=== PATIENT | male | born 1970 | race Caucasian/White ===

== ENCOUNTER 2021-09-05 01:32 | Observation (INO) | payer MEDICAID, SELFPAY ==
[2021-09-05] VITALS (13 sets, daily range): BP systolic 115–183; BP diastolic 72–120; PULSE 64–85; RESP 14–23; TEMP 36.4–36.7; O2SAT 88–100; BMI 47.5; BMI 47.2
--- NOTE | 2021-09-05 01:45 | CT_ITS ---
We are attempting to reach an attending provider to discuss findings. An addendum with communication details will be sent when the communication is complete. STUDY: CTA HEAD AND NECK WITH CONTRAST REASON FOR EXAM: Male, 51 years old. Neuro deficit, acute, stroke suspected RADIATION DOSAGE (If Supplied By Facility): CTDIvol = ( 24.70 ) mGy, DLP = ( 791.15 ) mGycm TECHNIQUE: CT angiography was performed with a multi-detector CT scanner. Data acquisition was obtained from the skull base through the vertex following intravenous administration of IV- 100 mL IsoVue 370. MIP images were reconstructed from the axial data set. Post-processing of the angiographic images was performed, with multiplanar reformation and 3D reconstruction. Individualized dose optimization techniques were used for this CT. COMPARISON: No relevant priors. FINDINGS: Normal bilateral petrous carotid arteries. Normal right cavernous carotid artery with a normal supraclinoid bifurcation. Normal left cavernous carotid artery with a normal supraclinoid bifurcation. Normal right A1 segments of the anterior cerebral artery. Normal left A1 segments of the anterior cerebral artery. Normal intact anterior communicating artery (ACOM). Normal bilateral A2 segments of the anterior cerebral arteries. Normal right M1 and M2 segments of the middle cerebral arteries, with a normal M1 bifurcation. Normal left M1 and M2 segments of the middle cerebral arteries, with a normal M1 bifurcation. Normal right posterior communicating artery (PCOM). Normal left posterior communicating artery (PCOM). Normal bilateral vertebral arteries. Normal basilar artery with a normal basilar bifurcation. The visualized bilateral superior cerebellar (SCA) arteries are normal. Normal bilateral P1, P2 and visualized P3 segments of the posterior cerebral arteries. There is no demonstrated aneurysm of the cheesh-na of [place]. There is no demonstrated abnormality of the visualized brain. AORTIC ARCH: Normal visualized aortic arch. Normal origins of the brachiocephalic, left common carotid, and left subclavian arteries. RIGHT CAROTID ARTERIES: Normal right common carotid artery (CCA). Normal right common carotid bulb. Normal origin of the right internal carotid (ICA) artery without a hemodynamically significant stenosis. Normal visualized cervical portion of the right internal carotid artery. Normal origin of the right external carotid artery (ECA). LEFT CAROTID ARTERIES: Normal left common carotid artery (CCA). Normal left common carotid bulb. Normal origin of the left internal carotid (ICA) artery without a hemodynamically significant stenosis. Normal visualized cervical portion of the left internal carotid artery. Normal origin of the left external carotid artery (ECA). VERTEBRAL ARTERIES: Normal bilateral vertebral arteries. CT/STROKE CTA Head AND Neck W/Con IMPRESSION: Normal CTA Head and neck with contrast. Electronically Signed: Hubert Sanders MD at 2:32 EST Tel , Service support ,
--- NOTE | 2021-09-05 01:45 | EKG12_ITS ---
Test Reason : ABD PAIN Blood Pressure : / mmHG Vent. Rate : 073 BPM Atrial Rate : 073 BPM P-R Int : 156 ms QRS Dur : 102 ms QT Int : 436 ms P-R-T Axes : 062 -26 032 degrees QTc Int : 480 ms Normal sinus rhythm Prolonged QT Abnormal ECG Leftward axis Incomplete Right Bundle Branch Block Confirmed by LAURIE PAINTING, LEONELA ([id number]), online editor KRISTEL CAMARGO ([id number]) on 09/07/2021 1:35:02 PM Referred By: ROSANA Confirmed By:LEONELA SULLIVAN MD
--- NOTE | 2021-09-05 01:45 | CT_ITS ---
We are attempting to reach an attending provider to discuss findings. An addendum with communication details will be sent when the communication is complete. STUDY: CT HEAD STROKE PROTOCOL W/O CONTRAST INJECTION REASON FOR EXAM: Male, 51 years old. Neuro deficit, acute, stroke suspected -- Abrupt vertigo, nystagmus, nausea and vomiting TECHNIQUE: Transaxial CT imaging of the brain was performed without administration of intravenous contrast material. Individualized dose optimization techniques were used for this CT. COMPARISON: No relevant priors. FINDINGS: Normal soft tissue structures. Normal calvarium. Normal size ventricles and extra-axial spaces for the patient''s age. Normal white matter tracts of the cerebral hemispheres. There 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 Normal brainstem. Normal cerebellum. There is no intracranial hemorrhage. There are no findings of an acute ischemic infarction. Normal visualized paranasal sinuses. CT/STROKE Brain/Head without Cont IMPRESSION: There 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 Electronically Signed: Hubert Sanders MD at 2:30 EST Tel , Service support ,
--- NOTE | 2021-09-05 01:46 | ED.VIS.STROK ---
HPI History of Present Illness Chief Complaint: Abd Pain Detail of Chief Complaint: Abrupt onset of vertigo, nausea and vomiting and diaphoresis Informant: patient and spouse/S.O. Onset/Context/Timing Onset: Yesterday (2299) Context: Sudden Onset Timing: Continuous Onset: 2299 on September 04 Current Severity: Mild Maximum Severity: Severe Worsened by: Nothing Relieved by: Nothing Associated Symptoms Associated Symptoms: Positive for Nausea and Vomiting; Negative for Headache and Chest Pain Narrative Narrative: Patient is a 51-year-old male who presents with abrupt onset of vertigo, nausea and vomiting, diaphoresis. He was sitting in a chair using a Q-tip when this started. states she is concerned he may have perforated his left TM. Patient denies decreased hearing. He denies ringing in his ears. He denies double vision. He denies trouble with speech or swallowing. He denies paresthesia, anesthesia or motor weakness upper or lower extremity. He states he feels like things are swimming any cannot stop the motion. He has no prior history of stroke. Prior similar symptoms: No Recent Illness/Hospitalization: No [facility] Medical History (Updated 09/05/21 @ 03:[address] Orestes Niño MD) Vertigo Home Medications NK 09/05/21 [History Last Taken Unknown] Allergy/AdvReac Type Severity Reaction Status Date / Time diazepam [From Valium] Allergy Anaphylaxis Verified 09/05/21 01:36 Social History (Updated 09/05/21 @ 01:[address] Orestes Niño MD) household members: spouse Smoking Status: Current every day smoker tobacco type: cigarettes alcohol intake: current alcohol intake frequency: other ROS ROS ED Constitutional Constitutional ED: Denies chills, fever(s), subjective, sweats or weakness Eyes Eyes: Denies blurry vision, change in vision or diplopia ENT ENT ED: Denies ear pain, rhinorrhea or sore throat Cardiovascular Cardiovascular: Denies chest pain, palpitations or paroxysmal nocturnal dyspnea Respiratory/Chest Respiratory/Chest: Denies cough, dyspnea, dyspnea on exertion or paroxysmal nocturnal dyspnea Gastrointestinal Gastrointestinal: Reports nausea and vomiting; Denies abdominal pain or diarrhea Genitourinary Genitourinary ED: Denies dysuria, hematuria or urinary frequency Musculoskeletal Musculoskeletal: Denies arthralgias, back pain, myalgias or neck pain Integumentary Denies rash Neurologic Neurologic: Denies headache(s) or weakness Psychiatric Psychiatric: Denies anxiety or depression Endocrine Endocrinology: Denies polydipsia, polyphagia or polyuria Hematologic/Lymphatic Hematologic/Lymphatic: Denies easy bruising EXAM Physical Exam Const Vital Signs: 09/05/21 01:33 09/05/21 01:55 09/05/21 01:56 Temperature 97.6 F L Temperature Source Temporal Pulse Rate 73 72 Respiratory Rate 18 16 Blood Pressure 183/120 H 163/102 H Blood Pressure Mean 141 122 Pulse Ox 97 98 Oxygen Delivery Method Room Air Room Air Room Air Oxygen Flow Rate (L/min) 09/05/21 02:15 09/05/21 02:30 09/05/21 02:36 Temperature Temperature Source Pulse Rate 75 79 Respiratory Rate 15 20 H Blood Pressure 177/113 H 177/116 H 152/97 H Blood Pressure Mean 134 136 115 Pulse Ox 88 97 Oxygen Delivery Method Room Air Nasal Cannula Oxygen Flow Rate (L/min) 2 Positive well nourished, well developed and obese General Appearance ED: well developed; Negative for NAD Nutritional Appearance: obese HEENT Reports TM's clear and moist mucous membranes atraumatic Tympanic Membrane ED: Yes TM's clear Eyes PERRL and EOMs intact bilaterally Eyes Narrative: Patient has continuous horizontal nystagmus with fast component at the right with central gaze. Exacerbated with lateral eye movement to the right and left. General Eye ED: Negative for pale conjunctiva or scleral icterus Neck no lymphadenopathy, supple and no JVD General: Negative for tenderness Chest Wall inspection of chest normal and palpation of chest normal Resp normal respiratory effort and clear to auscultation bilaterally Cardio Rate: regular rate Rhythm: regular rhythm Heart Sounds: S1 normal and S2 normal GI normal to inspection, nondistended, normoactive bowel sounds, soft to palpation and non-tender Back/Spine no CVA tenderness Cervical Spine: Negative for cervical spine tenderness Extremity normal to inspection General Extremety ED: Negative for deformity, edema or tenderness General Extremity: Negative for deformity or edema Neuro oriented x3 and CN's II-XII intact bilaterally Emma Coma Scale: document GCS findings Spontaneous Obeys Commands Oriented 15 Sensorium / Orientation: alert Motor Exam: strength 5/5 throughout Psych mental status grossly normal Skin no wounds General Skin Exam: Negative for jaundice Lesions: no lesions Rashes: no rashes STROKE Vital Signs/Narrative: Vital Signs Temp Pulse Resp BP Pulse Ox 01/09/22 02:36 152/97 H 09/05/21 02:30 79 20 H 177/116 H 97 09/05/21 02:15 75 15 177/113 H 88 09/05/21 01:55 72 16 163/102 H 98 09/05/21 01:33 97.6 F L 73 18 183/120 H 97 NIHSS Initial: 1a Level of Consciousness: 0 1b LOC Questions (Score 2 if aphasic/stupor): 0 1c LOC Commands (Only score 1st attempt): 0 2 Best Gaze (If aphasic, use reflexive mvmts.): 0 3 Visual: 0 4 Facial Palsy: 1 5 Motor Arm Right (UN = amputation/fusion): 0 5 Motor Arm Left: 0 6 Motor Leg Right: 0 6 Motor Leg Left: 0 7 Limb ataxia (Only + if out of proportion): 0 8 Sensory (Aphasia/stupor=0 or 1, coma=2): 0 9 Best Language: 0 10 Dysarthria (mute, coma=2, intubated=UN): 0 11 Extinction and Inattention (only scored if +): 0 Total Score: 1 MDM MDM MDM Narrative Medical decision making narrative: Patient presents with vertigo abruptly and has been continuous since onset. He has had nausea vomiting x3. Need to evaluate for posterior circulatory stroke versus labyrinthitis versus atypical presentation for paroxysmal benign positional vertigo. Stroke order set was initiated. Blood pressure is elevated 183/120. If there is no evidence of hemorrhage will allow permissive hypertension. If there is evidence of hemorrhage will lower abruptly. The neurologist was Dr. Griffiths. Since patient has a low NIH and there is concerned this may represent a peripheral vertigo versus central TPA was not it ministered. Lab Data Attestation: I reviewed the patient's lab results. Lab results narrative: White count is elevated 15.8 which is nonspecific. Basic metabolic panel is remarkable an elevated glucose of 144. Labs: Laboratory Results - last 24 hr 09/05/21 09/05/21 09/05/21 01:50 01:50 01:50 WBC 15.8 H RBC 5.02 Hgb 15.4 Hct 45.0 MCV 89.6 MCH 30.7 MCHC 34.2 RDW Std Deviation 38.2 RDW Coeff of Yakelin 11.7 Plt Count 266 MPV 9.7 Immature Gran % (Auto) 0.400 Neut % (Auto) 76.3 H Lymph % (Auto) 15.8 L [place] % (Auto) 5.6 Eos % (Auto) 1.3 Baso % (Auto) 0.6 Absolute Neuts (auto) 12.1 H Absolute Lymphs (auto) 2.51 Nucleated RBC % 0 PT 12.9 INR 1.0 APTT 27.3 Sodium 140 Potassium 3.6 Chloride 104 Carbon Dioxide 29.0 Anion Gap 7 BUN 11 Creatinine 0.92 Estim Creat Clear Calc 87.65 Est GFR (MDRD) Af Amer 113 Est GFR (MDRD) Non-Af 94 BUN/Creatinine Ratio 12.0 Glucose 144 H Calcium 8.7 Troponin I High Sens 16 Radiography Diagnostic Testing: Clinical Impression(s) from Imaging Studies Brain CT 09/05/21 01:45 IMPRESSION: There 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 Electronically Signed: Hubert Sanders MD at 2:30 EST Tel , Service support , ADDENDUM: 09/05/21 0250 IMPRESSION: There 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 N.B. : The above Results were Read Back by Hubert Sanders MD to Orestes Niño MD, and understanding confirmed on 09/05/2021 02:46:07 (ET). Electronically Signed: Hubert Sanders MD at 2:30 EST Tel , Service support , Head/Neck CTA 09/05/21 01:45 IMPRESSION: Normal CTA Head and neck with contrast. Electronically Signed: Hubert Sanders MD at 2:32 EST Tel , Service support , ADDENDUM: 09/05/21 0244 ADDENDUM: 09/05/21 0254 Chest X-Ray 09/05/21 02:15 IMPRESSION: Normal x-ray examination of the chest. Electronically Signed: Hubert Sanders MD at 2:54 EST Tel , Service support , CT of the head without contrast was reviewed by me and negative for subdural, epidural, intraparenchymal bleed or traumatic subarachnoid hemorrhage. Awaiting formal read by radiologist of the CT of the head and CTA of the head and neck. I was informed by the nurse the patient received a dose of labetalol because his diastolic was greater than 130. EKG Initial EKG: Attestation: I personally reviewed and interpreted this EKG as follows: Interpretation: Sinus Rhythm (Normal sinus rhythm ventricular rate of 73. MD interval is 156 ms. QRS duration 102 ms. QTc 480 ms, which is prolonged. [place] is normal.) Stroke Documentation Questions Stroke Team Activated: Yes Reviewed Inclusion/Exclusion criteria: Yes Critical Care Time Critical Care Time: Yes Critical care time (excluding procedures): 30-74 minutes (31), Including time spent: (History, physical, documentation, review of prior records, interpretation of laboratory results, review of CAT scan prior to official radiology read, treatment for hypertension), Discussing w/Patient &/or Family/Leather Polisher, Discussing w/Consultants (Dr. Griffiths neurologist at [facility]) and Arranging Admission or Transfer Discharge Plan Dx/Rx/DC Orders Clinical Impression: Vertigo, Facial droop, Hypertensive urgency, Acute hyperglycemia Disposition Disposition: Acute Care Hospital [facility]
[2021-09-05 01:55] LABS: Absolute Lymphocyte Count 2.51 X10^3/uL (0.83-4.51); Absolute Neutrophil Count 12.1 X10^3/uL (2.0-7.7); Basophil# 0.09 X10^3/uL; Basophil% 0.6 % (0-1); Eosinophil# 0.21 X10^3/uL; Eosinophils% 1.3 % (0-5); Hemoglobin 15.4 g/dL (13.0-16.5); Lymphocyte # 2.51 X10^3/ul (0.83-4.51); Lymphocyte % 15.8 % (19-41); Mean Corp Hgb Conc 34.2 g/dL (32-36); Mean Corpuscular Hgb 30.7 pg (27.0-32.0); Mean Corpuscular Volume 89.6 fL (80-94); Mean Platelet Vol. 9.7 fl (6.2-12.0); Monocyte# 0.88 X10^3/uL; Monocyte% 5.6 % (0-10); NRBC Flagged by Analyzer 0 % (0-5); Neutrophil # 12.08 X10^3/uL (2.7-7.7); Neutrophil % 76.3 % (47-70); Platelet Count 266 K/mm3 (150-450); RBC Distribution Width CV 11.7 % (11.6-14.6); RBC Distribution Width SD 38.2 fl (35.1-43.9); Red Blood Count 5.02 M/mm3 (4.6-6.2); White Blood Count 15.8 K/mm3 (4.4-11.0)
[2021-09-05] MEDS: Labetalol (Prefilled) 20 MG/4 ML IV ×2 (01:55→02:30)
[2021-09-05] MEDS: Ondansetron 4 MG/2 ML Vial IV (02:00)
[2021-09-05 02:05] LABS: Prothrombin Time (Protime)PT. 12.9 SECONDS (11.7-14.9)
[2021-09-05 02:06] LABS: Partial Thromboplast Time 27.3 Seconds (24.1-36.2)
[2021-09-05 02:13] LABS: Anion Gap 7 (5-15); BUN 11 mg/dL (7-18); Calcium,Total 8.7 mg/dL (8.5-10.1); Chloride 104 mmol/L (98-107); Creatinine, Serum 0.92 mg/dL (0.70-1.30); EST Glomerular Filtration Rate 94 mL/min (>60); Est Glom Filt Rate - Afr Amer 113 mL/min (>60); Estimated Creatinine Clearance 87.65 ml/min; Glucose 144 mg/dL (74-106); Potassium 3.6 mmol/L (3.5-5.1); Sodium Level 140 mmol/L (136-145); Troponin-I HS 16 pg/mL (3.0-78.0)
--- NOTE | 2021-09-05 02:15 | RAD_ITS ---
STUDY: X-RAY CHEST REASON FOR EXAM: Male, 51 years old. Neuro deficit, acute, stroke suspected TECHNIQUE: Single AP portable view of the chest. COMPARISON: None. FINDINGS: The lungs are clear and expanded. There is no demonstrated pleural abnormality. Normal size heart. Normal mediastinum and mamie. Normal visualized pulmonary arteries. Normal visualized aortic arch and descending thoracic aorta. Normal visualized thoracic spine. Normal visualized ribs, clavicles, and shoulders. There is no demonstrated abnormality of the visualized soft tissue structures of the upper abdomen. RAD/Chest 1 View IMPRESSION: Normal x-ray examination of the chest. Electronically Signed: Hubert Sanders MD at 2:54 EST Tel , Service support ,
--- NOTE | 2021-09-05 02:15 | ED.RN ---
patient snoring loudly and pulse ox at 87-90 on RA -- NC 2L O2 added and back to 92-98%
--- NOTE | 2021-09-05 03:09 | HP.PCM.HOS_ITS ---
[facility] - General General Date of Admission: 09/05/21 HPI Narrative INOCENCIO GOEL, is a 51 M with a significant history of morbid obesity who presents to emergency department with nausea and vomiting. Associated with his symptoms is Vertigo. His symptoms occurred about 3 and half hours prior to presentation. His symptoms started about 5 minutes after using a Q-tip to the left ear. He thinks that the Q-tip went too far. After using the Q-tip he began to eat and was drinking some beer. Also he was smoking. He put the cigarette down and then his symptoms started suddenly. He had diaphoresis at that time. And he could not stand up. At the emergency department patient was found to have nystagmus. Patient was evaluated by stroke neurologist. Per stroke neurologist it is unclear whether patient is having peripheral or central Vertigo especially as patient has right facial droop. Patient takes no home medications. Past surgical history: Surgery of left leg. [facility] Medical History Vertigo Home Medications NK 09/05/21 [History Last Taken Unknown] Allergy/AdvReac Type Severity Reaction Status Date / Time diazepam [From Valium] Allergy Anaphylaxis Verified 09/05/21 01:36 Family History Other Cancer Heart disease Hypertension Social History household members: spouse Smoking Status: Current every day smoker tobacco type: cigarettes alcohol intake: current alcohol intake frequency: other ROS ROS Narrative Constitutional: Denies fever, chills, fatigue, anorexia and change in weight Eyes: Denies blurry vision, change in eye color, change in vision, discharge from eye(s), double vision, erythema, eye pain, loss of vision or other HEENT: Denies abnormal hearing, dysphagia, ear pain, epistaxis, headache(s), hearing loss, nasal congestion, nasal discharge, post nasal drip, sinus pressure, sore throat or other Cardiovascular: Denies chest pain or palpitations. Denies dyspnea on exertion, orthopnea and paroxysmal nocturnal dyspnea Respiratory/Chest: Denies cough, excessive phlegm production, shortness of breath with exertion and wheezing Gastrointestinal: Reports nausea and vomiting. Denies abdominal pain, coffee ground emesis, constipation, diarrhea, dyspepsia, hematemesis, hematochezia, loose stools, melena, or other Genitourinary: Denies burning urination, difficulty urinating, dysuria, hematuria, nocturia, urinary frequency, urinary hesitancy, urinary incontinence, urinary urgency or other Musculoskeletal: Denies arthralgias, back pain, joint pain, joint stiffness, joint swelling, myalgias, neck pain or other Neurologic: Reports Vertigo. Denies abnormal gait, abnormal speech, confusion, focal weakness, headache(s), numbness, paresthesias, seizure-like activity, seizures, syncope, tingling, tremor(s) or other Psychiatric: Denies anxiety, depression, homicidal ideation, suicidal ideation or other Endocrinology: Denies change in body appearance, cold intolerance, excessive sweating, heat intolerance, polydipsia, polyuria or other Hematologic/Lymphatic: Denies anemia, easy bleeding, easy bruising, lymphadenopathy or other Integumentary: Denies rashes Allergic/Immunologic: Denies rhinitis, hives, eczema, asthma or other Vital Signs Vital Signs Vital Signs: 09/05/21 01:33 09/05/21 01:55 09/05/21 01:56 Temperature 97.6 F L Temperature Source Temporal Pulse Rate 73 72 Respiratory Rate 18 16 Blood Pressure 183/120 H 163/102 H Blood Pressure Mean 141 122 Pulse Ox 97 98 Oxygen Delivery Method Room Air Room Air Room Air Oxygen Flow Rate (L/min) 09/05/21 02:15 09/05/21 02:30 09/05/21 02:36 Temperature Temperature Source Pulse Rate 75 79 Respiratory Rate 15 20 H Blood Pressure 177/113 H 177/116 H 152/97 H Blood Pressure Mean 134 136 115 Pulse Ox 88 97 Oxygen Delivery Method Room Air Nasal Cannula Oxygen Flow Rate (L/min) 2 Weight Weight: 133.5 kg Body Mass Index (BMI) 47.5 Physical Exam Narrative Physical exam: General: Well-nourished, well-developed. Head: Normocephalic, atraumatic, no tenderness Eyes: PERRLA, EOMI with nystagmus. ENT, no trauma, moist mucous membranes, no rhinorrhea. Cerumen in bilateral ears obscuring tympanic membrane visualization. Part of tympanic membrane visualized did not show any erythema or bulging. Neck: Nontender, full range of motion, no spinal tenderness, deformities, step- off CVS: Regular rate and rhythm. S1-S2 present. No murmur, gallop or rub. Respiratory : clear to auscultation bilaterally, chest wall nontender, no wheezing Abdomen: Soft, nontender, nondistended, normal bowel sounds, no masses : Deferred Back: Nontender, no CVA tenderness, no midline spinal tenderness, deformities, step-offs Extremities: Nontender full range of motion, no trauma Skin: Normal color, no trauma, abrasions Neuro: Alert, oriented, cranial nerves II through XII grossly intact except patient has nystagmus. Right facial droop. Deep tendon reflexes not hyperreflexia throughout. No dysmetria on [id number] test and gbtn-[id number]-link test. No sensation changes. Psychiatry: Normal mood. Normal affect. Not depressed. Not anxious. Results Lab / Micro Data Result Diagrams: 09/05/21 01:50 09/05/21 01:50 Labs: Laboratory Results - last 24 hr 09/05/21 01:50: WBC 15.8 H, RBC 5.02, Hgb 15.4, Hct 45.0, MCV 89.6, MCH 30.7, MCHC 34.2, RDW Std Deviation 38.2, RDW Coeff of Yakelin 11.7, Plt Count 266, MPV 9.7, Immature Gran % (Auto) 0.400, Neut % (Auto) 76.3 H, Lymph % (Auto) 15.8 L, [place] % (Auto) 5.6, Eos % (Auto) 1.3, Baso % (Auto) 0.6, Absolute Neuts (auto) 12.1 H, Absolute Lymphs (auto) 2.51, Nucleated RBC % 0 09/05/21 01:50: PT 12.9, INR 1.0, APTT 27.3 09/05/21 01:50: Sodium 140, Potassium 3.6, Chloride 104, Carbon Dioxide 29.0, Anion Gap 7, BUN 11, Creatinine 0.92, Estim Creat Clear Calc 87.65, Est GFR (MDRD) Af Amer 113, Est GFR (MDRD) Non-Af 94, BUN/Creatinine Ratio 12.0, Glucose 144 H, Calcium 8.7, Troponin I High Sens [address] 09/05/21 01:45 IMPRESSION: There 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 Electronically Signed: Hubert Sanders MD at 2:30 EST Tel , Service support , ADDENDUM: 09/05/21 0253 IMPRESSION: There 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 N.B. : The above Results were Read Back by Hubert Sanders MD to Orestes Niño MD, and understanding confirmed on 09/05/2021 02:46:07 (ET). Electronically Signed: Hubert Sanders MD at 2:30 EST Tel , Service support , Head/Neck CTA 09/05/21 01:45 IMPRESSION: Normal CTA Head and neck with contrast. Electronically Signed: Hubert Sanders MD at 2:32 EST Tel , Service support , ADDENDUM: 09/05/21 0244 ADDENDUM: 09/05/21 0254 Chest X-Ray 09/05/21 02:15 IMPRESSION: Normal x-ray examination of the chest. Electronically Signed: Hubert Sanders MD at 2:54 EST Tel , Service support , Assessment & Plan Assessment/Plan (1) Stroke-like symptoms: PLAN: Stroke-like Symptoms Serial NINDS NIH Scale ordered Impression of head CT by radiology: Old stroke in the right basal ganglia. Head CT was independently reviewed interpreted no acute abnormality seen. Head and neck CT was independently interpreted and I agree with radiologist interpretation as above. Lipid profile and A1c ordered. Physical therapy, occupational therapy and to work with patient. N.p.o. until bedside swallow eval. and when patient passes a swallow eval keep n.p.o. for nausea and vomiting; and resume diet when patient can tolerate. Daily aspirin. High intensity statin Permissive hypertension. Control blood pressure with labetalol for systolic blood pressure of more than 220 or diastolic blood pressure of more than 120. MRI of brain ordered. Echocardiogram ordered. Review of labs showed leukocytosis of 15.8 with neutrophilia and lymphopenia, likely reactive. Review of BMP showed slightly elevated blood glucose of 144. Trend CBC and BMP. Zofran as needed; Compazine as needed ordered. Morbid Obesity: BMI -47.5. Complicates care. Lifestyle modification recommended. Tobacco abuse Counseled. Declined nicotine patch. DVT prophylaxis Subcutaneous Lovenox ordered. Charges/Coding Visit Charges OBSV E&M: 55339 Initial observation care L3
--- NOTE | 2021-09-05 04:10 | PCS.PANDOC ---
PANDEMIC DOCUMENTATION INITIATED: Date: 04/12/2021 Time: 190
--- NOTE | 2021-09-05 04:11 | MRI_ITS ---
STUDY: MRI BRAIN WITHOUT CONTRAST REASON FOR EXAM: Male, 51 years old. Stroke evaluation acute neurologic findings TECHNIQUE: Standardized multiplanar fat and water weighted pulse sequences were obtained. COMPARISON: Same day CT head FINDINGS: Appearance is similar to CT. There are chronic small periventricular white matter infarcts and bilateral basal ganglia and adjacent white matter capsular small, less than 5 mm, infarcts. There is no mass effect, hydrocephalus or herniation. Major vascular flow structures are intact. MRI/Brain without Contrast IMPRESSION: 1. No acute infarct. 2. Small chronic bilateral white matter and basal ganglia infarct, a finding not expected for age and representing accelerated/premature atherosclerosis. Electronically Signed: Shana Musa MD at 13:30 EST Tel , Service support ,
[2021-09-05 08:29] LABS: Absolute Lymphocyte Count 3.02 X10^3/uL (0.83-4.51); Absolute Neutrophil Count 9.1 X10^3/uL (2.0-7.7); Basophil% 0.8 % (0-1); Eosinophil# 0.06 X10^3/uL; Eosinophils% 0.5 % (0-5); Hematocrit 46.2 % (40-54); Hemoglobin 15.3 g/dL (13.0-16.5); Lymphocyte # 3.02 X10^3/ul (0.83-4.51); Lymphocyte % 23.1 % (19-41); Mean Corp Hgb Conc 33.1 g/dL (32-36); Mean Corpuscular Hgb 30.2 pg (27.0-32.0); Mean Corpuscular Volume 91.3 fL (80-94); Mean Platelet Vol. 9.8 fl (6.2-12.0); Monocyte# 0.74 X10^3/uL; Monocyte% 5.7 % (0-10); NRBC Flagged by Analyzer 0 % (0-5); Neutrophil # 9.12 X10^3/uL (2.7-7.7); Neutrophil % 69.6 % (47-70); Platelet Count 278 K/mm3 (150-450); RBC Distribution Width CV 11.7 % (11.6-14.6); RBC Distribution Width SD 38.9 fl (35.1-43.9); Red Blood Count 5.06 M/mm3 (4.6-6.2); White Blood Count 13.1 K/mm3 (4.4-11.0)
[2021-09-05 08:46] LABS: Hemoglobin A1c 5.5 % (3.8-5.6)
[2021-09-05] MEDS: proCHLORPERazine 10 MG/2 ML Vial 5 MG IV (08:46)
[2021-09-05 08:47] LABS: ALB/GLOB Ratio 0.8 RATIO (0.9-2.4); AST(SGOT) 24 U/L (15-37); Alanine Aminotransfer ALT/SGPT 42 U/L (16-61); Albumin, Serum 3.1 g/dL (3.2-5.0); Alkaline Phosphatase 60 U/L (45-117); Anion Gap 8 (5-15); BUN 9 mg/dL (7-18); BUN/Creat Ratio 11.3 RATIO (10-20); Calcium,Total 8.5 mg/dL (8.5-10.1); Chloride 104 mmol/L (98-107); Cholesterol 227 mg/dL (200); Creatinine, Serum 0.79 mg/dL (0.70-1.30); EST Glomerular Filtration Rate 110 mL/min (>60); Est Glom Filt Rate - Afr Amer 133 mL/min (>60); Estimated Creatinine Clearance 102.07 ml/min; Glucose 121 mg/dL (74-106); High Density Lipoprotein 46 mg/dL; Potassium 4.2 mmol/L (3.5-5.1); Protein, Total 7.1 g/dL (6.4-8.2); Sodium Level 140 mmol/L (136-145); Triglycerides 120 mg/dL; Very Low Density Lipoprotein 24 mg/dL (5-40)
[2021-09-05] MEDS: 0.9% Saline Lock 10 ML Syringe IV (08:47)
[2021-09-05] MEDS: Aspirin 81 MG TAB.CHEW PO (08:49)
--- NOTE | 2021-09-05 16:15 | PCM.PN.HOSP ---
Objective Data Objective Data Vital Signs: Vital Signs Temp Pulse Resp BP Pulse Ox 98.0 F 84 14 115/72 94 09/05/21 14:15 09/05/21 14:15 09/05/21 14:15 09/05/21 14:15 09/05/21 14:15 Oxygen Flow Rate (L/min) 4 Oxygen Delivery Method Room Air Weight: 132.8 kg Body Mass Index (BMI) 47.2 Intake & Output: Intake and Output for Last 24 Hours 09/03/21 09/04/21 09/05/21 23:59 23:59 23:59 Intake Total 290 / 290 Balance 290 / 290 Lab / Micro Data Result Diagrams: 09/05/21 08:04 09/05/21 08:04 Labs: Laboratory Results - last 24 hr 09/05/21 01:50: WBC 15.8 H, RBC 5.02, Hgb 15.4, Hct 45.0, MCV 89.6, MCH 30.7, MCHC 34.2, RDW Std Deviation 38.2, RDW Coeff of [place]akelin 11.7, Plt Count 266, MPV 9.7, Immature Gran % (Auto) 0.400, Neut % (Auto) 76.3 H, Lymph % (Auto) 15.8 L, [place] % (Auto) 5.6, Eos % (Auto) 1.3, Baso % (Auto) 0.6, Absolute Neuts (auto) 12.1 H, Absolute Lymphs (auto) 2.51, Nucleated RBC % 0 09/05/21 01:50: PT 12.9, INR 1.0, APTT 27.3 09/05/21 01:50: Sodium 140, Potassium 3.6, Chloride 104, Carbon Dioxide 29.0, Anion Gap 7, BUN 11, Creatinine 0.92, Estim Creat Clear Calc 87.65, Est GFR (MDRD) Af Amer 113, Est GFR (MDRD) Non-Af 94, BUN/Creatinine Ratio 12.0, Glucose 144 H, Calcium 8.7, Troponin I High Sens 16 09/05/21 08:04: WBC 13.1 H, RBC 5.06, Hgb 15.3, Hct 46.2, MCV 91.3, MCH 30.2, MCHC 33.1, RDW Std Deviation 38.9, RDW Coeff of [place]akelin 11.7, Plt Count 278, MPV 9.8, Immature Gran % (Auto) 0.300, Neut % (Auto) 69.6, Lymph % (Auto) 23.1, [place] % (Auto) 5.7, Eos % (Auto) 0.5, Baso % (Auto) 0.8, Absolute Neuts (auto) 9.1 H, Absolute Lymphs (auto) 3.02, Nucleated RBC % 0 09/05/21 08:04: Sodium 140, Potassium 4.2, Chloride 104, Carbon Dioxide 28.0, Anion Gap 8, BUN 9, Creatinine 0.79, Estim Creat Clear Calc 102.07, Est GFR (MDRD) Af Amer 133, Est GFR (MDRD) Non-Af 110, BUN/Creatinine Ratio 11.3, Glucose 121 H, Calcium 8.5, Total Bilirubin 0.50, AST 24, ALT 42, Alkaline Phosphatase 60, Total Protein 7.1, Albumin 3.1 L, Globulin 4.0, Albumin/Globulin Ratio 0.8 L, Triglycerides 120, Cholesterol 227 H, LDL Cholesterol 157 H, VLDL Cholesterol 24, HDL Cholesterol 46 09/05/21 08:04: Hemoglobin A1c 5.5 Radiography Diagnostic Testing: Radiology Impression Brain CT 09/05/21 01:45 IMPRESSION: There 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 Electronically Signed: Hubert Sanders MD at 2:30 EST Tel , Service support , ADDENDUM: 09/05/21 0253 IMPRESSION: There 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 N.B. : The above Results were Read Back by Hubert Sanders MD to Orestes Niño MD, and understanding confirmed on 09/05/2021 02:46:07 (ET). Electronically Signed: Hubert Sanders MD at 2:30 EST Tel , Service support , Head/Neck CTA 09/05/21 01:45 IMPRESSION: Normal CTA Head and neck with contrast. Electronically Signed: Hubert Sanders MD at 2:32 EST Tel , Service support , ADDENDUM: 09/05/21 0244 ADDENDUM: 09/05/21 0254 Chest X-Ray 09/05/21 02:15 IMPRESSION: Normal x-ray examination of the chest. Electronically Signed: Hubert Sanders MD at 2:54 EST Tel , Service support , Brain MRI 09/05/21 04:11 IMPRESSION: 1. No acute infarct. 2. Small chronic bilateral white matter and basal ganglia infarct, a finding not expected for age and representing accelerated/premature atherosclerosis. Electronically Signed: Shana Musa MD at 13:30 EST Tel , Service support ,
--- NOTE | 2021-09-05 16:45 | PCM.DC ---
Discharge Instructions Diet Discharge Diet: No restrictions Activity Discharge Activity: Return to Normal Activity Follow Up Care Test Results: Test results from this visit will be discussed in further detail at your follow-up appointment, if applicable. Discharge Plan Admission Admit Date/Time: 09/05/21 02:58 Primary Reason for Your Visit: dizziness Attending Provider: Jimmy Rivera Primary Care Provider: Care Physician,No Primary Discharge Orders/Prescriptions Prescriptions: New atorvastatin 80 mg Tablet 80 mg PO QHS Qty: 30 RF: 0 aspirin 81 mg Tablet,Chewable 81 mg PO BREAKFAST Qty: 0 RF: 0 Referrals / Follow Up: Care Physician,No Primary [Primary Care Provider] - See Referral Note (within one month) NOT,DEFINED [NON-STAFF] - Disposition Disposition (needs filled in before D/C Order can be placed): Home, Self Care
--- NOTE | 2021-09-05 16:54 | DS.PCM_ITS ---
Providers Date of Admission: 09/05/21 Date of Discharge: 09/05/21 Primary Care Physician: No Primary Care Phys Reason For Visit: STROKE LIKE SYMPTOMS Diagnosis Discharge Diagnosis (1) Stroke-like symptoms: Status: Acute Code(s): R29.90 - Unspecified symptoms and signs involving the nervous system Plan: 1. Acute vertigo #2 nausea and vomiting secondary to #1 #3 Hyperlipidemia #4 leukocytosis-etiology unclear Medications at Discharge Home Medications aspirin 81 mg PO BREAKFAST #0 tab 09/05/21 atorvastatin 80 mg PO QHS #30 tab 09/05/21 Hospital Course Operations None Procedures None Summary of Care Provided Minutes Spent on Discharge: 30 Hospital Course: This 51-year-old white male was seen in the emergency room with complaints of an abrupt onset of vertigo nausea and vomiting with diaphoresis while using a Q-tip in his ear. Patient denied any focal motor weakness or paresthesias, blood pressure is noted to be elevated in the emergency room, patient's white blood cell count was elevated at 15.8, a stroke team had been called and the telemetry neurologist did not recommend tPA administration. Patient underwent imaging studies which did not show the presence of a stroke or an acute bleed, he was placed in observation status on PCU and ultimately under went an MRI of the brain which showed no evidence of an acute stroke. Patient's symptoms had resolved, repeat CBC showed a slight elevation in his white blood cell count. On 09/05/2021, patient was seen and examined: On examination he appeared in good health and spirits. Vital signs as documented. Skin warm and dry and without overt rashes. Neck without JVD, neck was supple, trachea midline, thyroid was normal. Lungs clear bilaterally, normal air movement was noted. Heart exam no table for regular rhythm, normal sounds and absence of murmurs, rubs or gallops. Abdomen unremarkable and without evidence of organomegaly, masses, or abdominal aortic enlargement. Bowel sounds are present, abdomen is not distended. Extremities nonedematous, no cyanosis was noted, no clubbing was noted. Neuro: Cranial nerves II through XII are grossly intact, no focal motor deficits were noted, sensation to light touch and pinprick intact, motor exam 5/5 throughout. Psych: Patient is alert and oriented x3, he does not appear anxious or depressed, he does not appear agitated. Patient was discharged home in stable condition on 09/05/2021 Weight / BMI Weight Weight: 132.8 kg Body Mass Index (BMI) 47.2 ABG / Lab / Microbiology Data Result Diagrams: 09/05/21 08:04 09/05/21 08:04 Laboratory: Laboratory Results - last 24 hr 09/05/21 01:50: WBC 15.8 H, RBC 5.02, Hgb 15.4, Hct 45.0, MCV 89.6, MCH 30.7, MCHC 34.2, RDW Std Deviation 38.2, RDW Coeff of [place]akelin 11.7, Plt Count 266, MPV 9.7, Immature Gran % (Auto) 0.400, Neut % (Auto) 76.3 H, Lymph % (Auto) 15.8 L, [place] % (Auto) 5.6, Eos % (Auto) 1.3, Baso % (Auto) 0.6, Absolute Neuts (auto) 12.1 H, Absolute Lymphs (auto) 2.51, Nucleated RBC % 0 09/05/21 01:50: PT 12.9, INR 1.0, APTT 27.3 09/05/21 01:50: Sodium 140, Potassium 3.6, Chloride 104, Carbon Dioxide 29.0, Anion Gap 7, BUN 11, Creatinine 0.92, Estim Creat Clear Calc 87.65, Est GFR (MDRD) Af Amer 113, Est GFR (MDRD) Non-Af 94, BUN/Creatinine Ratio 12.0, Glucose 144 H, Calcium 8.7, Troponin I High Sens 16 09/05/21 08:04: WBC 13.1 H, RBC 5.06, Hgb 15.3, Hct 46.2, MCV 91.3, MCH 30.2, MCHC 33.1, RDW Std Deviation 38.9, RDW Coeff of [place]akelin 11.7, Plt Count 278, MPV 9.8, Immature Gran % (Auto) 0.300, Neut % (Auto) 69.6, Lymph % (Auto) 23.1, [place] % (Auto) 5.7, Eos % (Auto) 0.5, Baso % (Auto) 0.8, Absolute Neuts (auto) 9.1 H, Absolute Lymphs (auto) 3.02, Nucleated RBC % 0 09/05/21 08:04: Sodium 140, Potassium 4.2, Chloride 104, Carbon Dioxide 28.0, Anion Gap 8, BUN 9, Creatinine 0.79, Estim Creat Clear Calc 102.07, Est GFR (MDRD) Af Amer 133, Est GFR (MDRD) Non-Af 110, BUN/Creatinine Ratio 11.3, Glucose 121 H, Calcium 8.5, Total Bilirubin 0.50, AST 24, ALT 42, Alkaline Phosphatase 60, Total Protein 7.1, Albumin 3.1 L, Globulin 4.0, Albumin/Globulin Ratio 0.8 L, Triglycerides 120, Cholesterol 227 H, LDL Cholesterol 157 H, VLDL Cholesterol 24, HDL Cholesterol 46 09/05/21 08:04: Hemoglobin A1c 5.5 Radiography Diagnostic Testing: Radiology Impression Brain CT 09/05/21 01:45 IMPRESSION: There 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 Electronically Signed: Hubert Sanders MD at 2:30 EST Tel , Service support , ADDENDUM: 09/05/21 0253 IMPRESSION: There 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 N.B. : The above Results were Read Back by Hubert Sanders MD to Orestes Niño MD, and understanding confirmed on 09/05/2021 02:46:07 (ET). Electronically Signed: Hubert Sanders MD at 2:30 EST Tel , Service support , Head/Neck CTA 09/05/21 01:45 IMPRESSION: Normal CTA Head and neck with contrast. Electronically Signed: Hubert Sanders MD at 2:32 EST Tel , Service support , ADDENDUM: 09/05/21 0244 ADDENDUM: 09/05/21 0254 Chest X-Ray 09/05/21 02:15 IMPRESSION: Normal x-ray examination of the chest. Electronically Signed: Hubert Sanders MD at 2:54 EST Tel , Service support , Brain MRI 09/05/21 04:11 IMPRESSION: 1. No acute infarct. 2. Small chronic bilateral white matter and basal ganglia infarct, a finding not expected for age and representing accelerated/premature atherosclerosis. Electronically Signed: Shana Musa MD at 13:30 EST Tel , Service support , D/C Instructions Discharge Diet: No restrictions Meaningful Use Info Meaningful Use Diagnoses (Choose all that apply): None applicable Discharge Plan Admission Admit Date/Time: 09/05/21 02:58 Primary Reason for Your Visit: dizziness Attending Provider: Jimmy Rivera Primary Care Provider: Care Physician,No Primary Discharge Orders/Prescriptions Prescriptions: New atorvastatin 80 mg Tablet 80 mg PO QHS Qty: 30 RF: 0 aspirin 81 mg Tablet,Chewable 81 mg PO BREAKFAST Qty: 0 RF: 0 Referrals / Follow Up: Care Physician,No Primary [Primary Care Provider] - See Referral Note (within o ne month) NOT,DEFINED [NON-STAFF] - Disposition Disposition (needs filled in before D/C Order can be placed): Home, Self Care Charges/Coding Visit Charges OBSV E&M: 66330 Observation care discharge
== END 2021-09-05 16:54 | disposition home or self-care (01) ==
LOC: ED 03:08 → PCU 04:39
PROVIDERS: Admitting Provider Hospitalist; Emergency Provider Emergency Medicine; Visit Provider Internal Medicine
DX: R29.90 Unspecified symptoms and signs involving the nervous system (principal); E66.01 Morbid (severe) obesity due to excess calories; Z68.42 Body mass index [BMI] 45.0-49.9, adult; R11.2 Nausea with vomiting, unspecified; E78.5 Hyperlipidemia, unspecified; R07.9 Chest pain, unspecified; R42 Dizziness and giddiness; F17.210 Nicotine dependence, cigarettes, uncomplicated; R29.701 NIHSS score 1; R73.9 Hyperglycemia, unspecified; D72.829 Elevated white blood cell count, unspecified
CPT/HCPCS: 70450; 70496; 70498; 70551; 71045; 80048; 80053; 80061; 83036; 84484; 85025; 85610; 85730; 93005; 96374; 96375; 96376; 97162; 97165; 99218; 99285; Q9967; A4216; G0378; J2405